=== PATIENT | female | born 1975 ===

== ENCOUNTER 2018-08-03 20:51 | Emergency (ER) | payer SELFPAY ==
[~2018-08-03 20:51] MED LIST: CLIN300C99 PO; HYDR-385 PO; LOR5/325 PO
--- NOTE | 2018-08-03 20:59 | ER Report ---
History and Physical Time Seen By MD: 20:57 HPI/ROS CHIEF COMPLAINT: Left upper frontal dental pain HISTORY OF PRESENT ILLNESS: 42-year-old female presents with dental abscess. Patient shows a tooth at position #12 with a large caries extending up into the gum. The anterior aspect of the tooth is completely gone. The surrounding gum tissue is grossly erythematous and edematous. Patient notes no difficulty breathing or swallowing. Patient notes fevers. Patient states the tooth broke off a segment 3 days ago. REVIEW OF SYSTEMS: Respiratory: No cough, no dyspnea. Cardiovascular: No chest pain, no palpitations. Gastrointestinal: No vomiting, no abdominal pain. Musculoskeletal: No back pain. Allergies: Coded Allergies: BEE STINGS (Verified Allergy, Intermediate, 08/03/18) Penicillins (Verified Allergy, Intermediate, 08/03/18) Sulfa (Sulfonamide Antibiotics) (Verified Allergy, Intermediate, 08/03/18) shellfish derived (Verified Allergy, Intermediate, 08/03/18) tramadol (Verified Allergy, Intermediate, 08/03/18) Home Meds Active Scripts Clindamycin Hcl (CLINDAMYCIN HCL) 300 Mg Capsule, 300 MG PO TID for infection, #30 CAPSULE TAKE 1 CAPSULE EVERY SIX HOURS Prov:RAAD FIELDS Sameera DO 08/03/18 Discontinued Scripts Hydrocodone Bit/Acetaminophen (HYDROCODON-ACETAMINOPHEN 5-325) 1 Each Tablet, 1 EACH PO Q4-6H PRN for PAIN, #12 TAB Prov:SUNSHINE HERRERA CLINICAL UNIT COORDINATOR 09/07/16 Clindamycin Hcl (CLINDAMYCIN HCL) 300 Mg Capsule, 300 MG PO Q6H, #40 CAPSULE Prov:SUNSHINE HERRERA CLINICAL UNIT COORDINATOR 09/07/16 Past Medical/Surgical History Patient has a past medical history of migraines. Patient has a surgical history. Reviewed Nurses Notes: Yes Old Medical Records Reviewed: Yes Hx Substance Use Disorder: No Constitutional Vital Sign - Last 24 Hours 08/03/18 08/03/18 20:55 21:10 Temp 98.5 Pulse 89 83 Resp 18 18 B/P (MAP) 131/96 140/77 (98) Pulse Ox 91 91 O2 Delivery Room Air Room Air Physical Exam General Appearance: The patient is alert, has no immediate need for airway protection and no current signs of toxicity. Vital signs stable, afebrile, pulse ox normal HEENT: Pupils equal and round no injection. TMs normal, TMJs nontender, dentition with poor condition. Generally. The tooth at position #12, has a large caries with surrounding gum inflammation consistent with a tooth abscess., Palpation of the anterior cervical chain reveals no lymphadenopathy, no induration of neck tissues. Respiratory: Chest is non tender, lungs are clear to auscultation. Cardiac: regular rate and rhythm Gastrointestinal: Abdomen is soft and non tender, no masses, bowel sounds normal. Musculoskeletal: Neck: Neck is supple and non tender. Extremities have full range of motion and are non tender. Skin: No rashes or lesions. DIFFERENTIAL DIAGNOSIS: After history and physical exam differential diagnosis was considered for advanced periodontal disease, tooth abscess, dental abscess, sinus fistula Medical Decision Making ED Course/Re-evaluation ED Course Patient was admitted to an examination room. H&P was done. The differential diagnoses was considered. Patient with advanced periodontal disease. She now has obvious tooth abscess. She was treated with clindamycin 3 and her milligrams. She is advised ibuprofen 600 mg 3 times daily. She is advised warm compresses to the affected area. Follow-up with dentist as soon as possible. P brandy states she has a scheduled appointment in November to have all of her teeth extracted and to be fitted for dentures. Decision to Disposition Date: Aug 03, 2018 Decision to Disposition Time: 21:08 Depart Departure Latest Vital Signs Vital Signs Date Time Temp Pulse Resp B/P (MAP) Pulse Ox O2 Delivery O2 Flow Rate FiO2 08/03/18 21:10 83 18 140/77 (98) 91 Room Air 08/03/18 20:55 98.5 Impression: Primary Impression: Pain due to dental caries Condition: Improved Disposition: HOME OR SELF-CARE New Scripts Clindamycin Hcl (CLINDAMYCIN HCL) 300 Mg Capsule 300 MG PO TID for infection, #30 CAPSULE TAKE 1 CAPSULE EVERY SIX HOURS Prov: RAAD FIELDS DO 08/03/18 Patient Instructions: Dental Abscess (ED) Additional Instructions: Take ibuprofen 200 mg 3 tablets 3 times a day with food Apply warm compresses to the affected area Follow-up with dentist as soon as possible RAAD FIELDS DO Aug 03, 2018 20:59
[2018-08-03] MEDS ORDERED: CLIN300C99 PO (21:09)
[2018-08-03 21:10] VITALS: BP 140/77
[2018-08-03] MEDS ORDERED: CLINDAMYCIN 150 MG CAP PO ONE (21:10)
== END 2018-08-03 21:15 | disposition home or self-care (01) ==
LOC: ER 20:59
DX: K02.9 Dental caries, unspecified (principal)
CPT/HCPCS: 99283